=== PATIENT | female | born 1955 | race Caucasian/White ===

== ENCOUNTER → 2017-05-04 | Outpatient (CLI) | payer BC ==
[~2017-05-04] MED LIST: HYZAAR 12.5 MG-1 TAB PO; LIPITOR 40MG TA40 MG PO
== END ==
LOC: MC.RAD 09:18
DX: Z12.31 Encounter for screening mammogram for malignant neoplasm of breast (principal)

== ENCOUNTER → 2017-07-08 | Outpatient (CLI) | payer BC | LOC: COL.VAS 07:41 | DX: I36.1 Nonrheumatic tricuspid (valve) insufficiency (principal); R00.2 Palpitations; I10 Essential (primary) hypertension ==

== ENCOUNTER → 2018-03-16 | Outpatient (CLI) | payer BC | LOC: COL.VAS 08:37 | DX: I65.23 Occlusion and stenosis of bilateral carotid arteries (principal) ==

== ENCOUNTER → 2019-07-10 | Outpatient (CLI) | payer BC | LOC: MC.RAD 05-22 07:45 | DX: Z12.31 Encounter for screening mammogram for malignant neoplasm of breast (principal) ==

== ENCOUNTER → 2021-05-05 | Outpatient (CLI) | payer BC | LOC: MC.RAD 07:45 | DX: Z12.31 Encounter for screening mammogram for malignant neoplasm of breast (principal); Z98.82 Breast implant status ==

== ENCOUNTER → 2022-04-30 | Outpatient (CLI) | payer BC, MEDICARE | LOC: COL.RAD 10:05 | DX: D35.1 Benign neoplasm of parathyroid gland (principal); E83.52 Hypercalcemia | CPT/HCPCS: A9500 ==

== ENCOUNTER → 2022-05-05 | Outpatient (CLI) | payer BC, MEDICARE | LOC: MC.RAD 11:08 | DX: Z12.31 Encounter for screening mammogram for malignant neoplasm of breast (principal) ==

== ENCOUNTER 2022-12-02 10:19 | Emergency (ER) | payer MEDICARE, BC ==
[~2022-12-02] VITALS: Ht 172.7 cm; Wt 95.5 kg
[2022-12-02 10:31] VITALS: TEMP 98.2
[2022-12-02 11:12] LABS: BASO # 0.1 K/mm3 (0.0-0.2); BASO % 0.6 % (0.0-2.0); EOS % 0.2 % (0.0-4.0); GRAN # 6.6 K/mm3 (1.4-6.5); GRAN % 77.9 % (42.2-75.2); HEMATOCRIT 46.2 % (37.0-47.0); HEMOGLOBIN 15.4 g/dl (12.5-16.0); LYMPH # 1.5 K/mm3 (1.2-3.4); MEAN CELL VOLUME 87 fl (80.0-100.0); MEAN CORPUSCULAR HEMOGLOBIN 29 pg (27-31); MEAN CORPUSCULAR HGB CONC 33 g/dl (33.0-37.0); MEAN PLATELET VOLUME 11.3 fl (7.4-10.4); MONO # 0.2 K/mm3 (0.1-0.6); MONO % 2.7 % (1.7-9.3); PLATELET COUNT 258 K/mm3 (130-400); RED BLOOD COUNT 5.29 M/mm3 (4.10-5.30); REDCELL DISTRIBUTION WIDTH-CV 12.4 % (11.5-14.5)
[2022-12-02 11:24] LABS: ALBUMIN 4.2 gm/dL (3.4-4.8); BILIRUBIN,TOTAL 0.5 mg/dL (0.2-1.2); CALCIUM 10.5 mg/dL (8.4-10.2); CREATININE, serum 0.74 mg/dL (0.57-1.11); POTASSIUM 3.4 mmol/L (3.5-4.5); TOTAL PROTEIN 7.6 gm/dL (6.2-8.1)
[2022-12-02 11:36] LABS: BILIRUBIN,DIRECT 0.2 mg/dL (0.0-0.5)
[2022-12-02 12:32] VITALS: BP 140/78; PULSE 93
[2022-12-02] MEDS ORDERED: ELIQUIS 5MG PO (12:37)
[2022-12-02] MEDS ORDERED: K-TAB20 PO (12:37)
[2022-12-02] MEDS ORDERED: TAMBOCOR50 MG PO (12:37)
== END 2022-12-02 13:02 | disposition home or self-care (01) ==
LOC: COL.ER 10:19
PROVIDERS: Emergency Medicine
DX: I48.91 Unspecified atrial fibrillation (principal); I10 Essential (primary) hypertension; R11.2 Nausea with vomiting, unspecified; R10.11 Right upper quadrant pain; Z79.01 Long term (current) use of anticoagulants
CPT/HCPCS: J1885; J2765; J7120

== ENCOUNTER 2022-12-06 16:31 | Emergency (ER) | payer MEDICARE, BC ==
[~2022-12-06] VITALS: Ht 172.7 cm; Wt 95.5 kg
[~2022-12-06 16:31] MED LIST changes: +ELIQUIS 5MG PO; +K-TAB20 PO; +TAMBOCOR50 MG PO
[2022-12-06 16:37] VITALS: TEMP 98.7
[2022-12-06 17:19] LABS: BASO % 0.6 % (0.0-2.0); EOS # 0.1 K/mm3 (0.0-0.7); EOS % 0.7 % (0.0-4.0); GRAN # 4.5 K/mm3 (1.4-6.5); GRAN % 66.5 % (42.2-75.2); HEMOGLOBIN 14.7 g/dl (12.5-16.0); LYMPH # 1.9 K/mm3 (1.2-3.4); LYMPH % 27.5 % (20.0-51.0); MEAN CELL VOLUME 86 fl (80.0-100.0); MEAN CORPUSCULAR HEMOGLOBIN 29 pg (27-31); MEAN CORPUSCULAR HGB CONC 34 g/dl (33.0-37.0); MEAN PLATELET VOLUME 10.8 fl (7.4-10.4); MONO # 0.3 K/mm3 (0.1-0.6); MONO % 4.6 % (1.7-9.3); PLATELET COUNT 242 K/mm3 (130-400); RED BLOOD COUNT 5.03 M/mm3 (4.10-5.30); REDCELL DISTRIBUTION WIDTH-CV 12.2 % (11.5-14.5)
[2022-12-06 17:40] LABS: ALANINE AMINOTRANSFERASE 21 U/L (0-55); ALBUMIN 4.4 gm/dL (3.4-4.8); ALKALINE PHOSPHATASE 77 U/L (40-150); ANION GAP 11 mmol/L (7-16); AST,SGOT 15 U/L (5-34); BILIRUBIN,TOTAL 0.5 mg/dL (0.2-1.2); BLOOD UREA NITROGEN 9 mg/dL (10-20); CALCIUM 10.8 mg/dL (8.4-10.2); CARBON DIOXIDE 21 mmol/L (23-31); CHLORIDE 106 mmol/L (98-107); CREATININE, serum 0.74 mg/dL (0.57-1.11); GLUCOSE 122 mg/dL (70-99); POTASSIUM 3.4 mmol/L (3.5-4.5); SODIUM 138 mmol/L (136-145); TOTAL PROTEIN 7.6 gm/dL (6.2-8.1)
[2022-12-06 17:56] LABS: TROPONIN-I < 0.010 ng/mL (0.00-0.033)
[2022-12-06] MEDS ORDERED: ZOFRAN 4MG T4 MG/TAB PO (18:23)
[2022-12-06] MEDS ORDERED: ATIVAN 0.50.5 MG/TAB PO (18:23)
[2022-12-06] MEDS ORDERED: DRAMAMINE LESS25 MG PO (18:23)
[2022-12-06 18:35] VITALS: BP 157/90; PULSE 73
== END 2022-12-06 18:36 | disposition home or self-care (01) ==
LOC: COL.ER 16:31
PROVIDERS: Physician Assistant
DX: R42 Dizziness and giddiness (principal); R11.2 Nausea with vomiting, unspecified; I10 Essential (primary) hypertension; I48.91 Unspecified atrial fibrillation; Z79.01 Long term (current) use of anticoagulants; Z28.310 Unvaccinated for COVID-19
CPT/HCPCS: J2060; J2405; J7030

== ENCOUNTER → 2022-12-20 | Outpatient (CLI) | payer MEDICARE, BC ==
[~2022-12-20] MED LIST changes: +ATIVAN 0.50.5 MG/TAB PO; +DRAMAMINE LESS25 MG PO; +ZOFRAN 4MG T4 MG/TAB PO
== END ==
LOC: COL.RAD 09:56
DX: D35.1 Benign neoplasm of parathyroid gland (principal)
CPT/HCPCS: A9500